=== PATIENT | female | born 1960 | race Caucasian/White ===

== ENCOUNTER 2018-04-30 09:47 | Day surgery (SDC) | payer OTHER, SELFPAY ==
[2018-04-30] VITALS (7 sets, daily range): BP systolic 101–111; BP diastolic 67–69; PULSE 59–66; RESP 16; TEMP 36.7–37.1; O2SAT 98–100; BMI 20.2
[2018-04-30] MEDS: Cefazolin 2 GM in 0.9% Normal Saline 100 ML IV (11:08)
--- NOTE | 2018-04-30 11:32 | PCM.IMDPSTOP ---
Immediate Post-Op Note Date of Procedure: 04/30/18 Primary Surgeon/Physician: Jen Park MD deputy coroner investigator: none Pre-Operative Diagnosis: frequent urinary tract infections, urinary frequency. Post-Operative Diagnosis: same Surgery/Procedure Performed:: cystoscopy Description of Surgical Findings:: no mass, erythema, ulceration or foreign body identified. increase vascularity diffusely. Estimated Blood Loss: 1cc Specimen's removed: none Type of Anesthesia:: MAC - Admit VTE Documentation VTE Present on Admission: Yes VTE Mechan Device Prophylaxis: SCD's VTE Pharm Prophylaxis ordered?: No Reason prophylaxis not ordered:: Treatment Not Indicated
--- NOTE | 2018-04-30 11:36 | DCINST_ITS ---
Discharge Diet: No Restrictions Discharge Activity: Return to Normal Activity, May Shower May resume sexual activity in: No Restrictions Call your doctor if you observe: Fever of 101 or Higher, Inability to urinate, Shortness of breath, Chest pain, Calf discomfort Allergies/Adverse Reactions: Allergies azithromycin [From Zithromax Z-Santi] Allergy (Verified 04/17/18 15:47) Hives prochlorperazine [From Compazine] Allergy (Verified 04/17/18 15:46) Other PANIC ATTACK sulfamethoxazole [From Bactrim] Allergy (Verified 04/17/18 15:46) Anaphylaxis trimethoprim [From Bactrim] Allergy (Verified 04/17/18 15:46) Anaphylaxis cephalexin Adverse Reaction (Verified 04/30/18 10:19) Hives ciprofloxacin [From Cipro] Adverse Reaction (Verified 04/17/18 15:46) Other GI UPSET Medications to take at Discharge Levothyroxine [Synthroid] 150 mcg PO DAILY 04/17/18 Norethindrone AC-Eth Estradiol [Fyavolv 0.5 mg-2.5 Mcg Tablet] 1 each PO DAILY 04/17/18 Spironolactone [Aldactone] 100 mg PO DAILY 04/17/18 traZODone [Desyrel] 100 mg PO QHS 04/17/18 Primary Care Physician: Care Physician,No Primary [Primary Care Provider] - Test Results: Test results from this visit will be discussed in further detail at your follow- up appointment, if applicable. Please Follow Up With: Jen Park MD When: 2 weeks Proposed Discharge Date: 04/30/18
--- NOTE | 2018-04-30 11:42 | OP.PCM_ITS ---
Problem List (1) Urinary tract bacterial infections Status: Acute (2) Urinary frequency Status: Acute Report of Operation Date of Procedure: 04/30/18 Pre-Operative Diagnosis: frequent urinary tract infections, urinary frequency. Post-Operative Diagnosis: same Surgery/Procedure Performed:: cystoscopy Description of Surgical Findings:: no mass, erythema, ulceration or foreign body identified. increase vascularity diffusely. 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 She had an attempted cystoscopy in the office several years ago and was unable to undergo it secondary to severe pain and possible urethral stricture. After discussing the risks benefits and alternatives, the patient agreed to proceed with evaluation under anesthesia. The patient was taken to the operating room and placed on the operating room table. Anesthesia monitored the head, neck, airway, IV access, and vital signs throughout the case. Once anesthesia was appropriately administered, the patient was placed into dorsal lithotomy position was prepped and draped in usual sterile fashion. No urethral dilation was needed for insertion of the cystoscope. A 21 Urdu cystoscope was used with a 70 degree lens. The bladder mucosa was visualized in its entirety. The ureteral orifices were identified on the area of the trigone in correct anatomic position. The bladder mucosa showed no evidence of mass, erythema, ulceration or foreign body. There was a diffuse increased vascularity to the mucosa. The bladder was emptied and the patient was awakened and taken to the recovery room in good condition. There were no complications during the procedure. - Complications none - Admit VTE Documentation VTE Present on Admission: Yes VTE Mechan Device Prophylaxis: SCD's VTE Pharm Prophylaxis ordered?: No Reason prophylaxis not ordered:: Treatment Not Indicated
== END 2018-04-30 12:35 | disposition home or self-care (01) ==
LOC: SDC 09:50 → AC 09:52
PROVIDERS: Referring Provider Urology; Visit Provider Urology
PROC: 0T7D8ZZ Dilation of Urethra, Via Natural or Artificial Opening Endoscopic (ICD-10-PCS; CPT 52281; principal; 2018-04-30 11:10)
DX: N39.0 Urinary tract infection, site not specified (principal); B96.89 Other specified bacterial agents as the cause of diseases classified elsewhere; Z87.440 Personal history of urinary (tract) infections; N95.2 Postmenopausal atrophic vaginitis; E06.9 Thyroiditis, unspecified; E03.8 Other specified hypothyroidism; I34.8 Other nonrheumatic mitral valve disorders; F32.9 Major depressive disorder, single episode, unspecified; Z79.899 Other long term (current) drug therapy
CPT/HCPCS: 00910; 52000; J7120; J2405